=== PATIENT | male | born 1990 | race Caucasian/White ===

== ENCOUNTER 2018-03-28 11:48 | Emergency (ER) | payer OTHER ==
[2018-03-28 11:55] VITALS: BP 121/76
--- NOTE | 2018-03-28 12:08 | EDPHY ---
H & P Stated Complaint: ST Time Seen by Provider: 03/28/18 12:08 - Personal History Current Tetanus/Diphtheria Vaccine: Yes Current Tetanus Diphtheria and Acellular Pertussis (TDAP): Yes - Medical/Surgical History Hx Asthma: No Hx Chronic Respiratory Disease: No Hx Diabetes: No Hx Cardiac Disease: No Hx Renal Disease: No Hx Cirrhosis: No Hx Alcoholism: No Hx HIV/AIDS: No Hx Splenectomy or Spleen Trauma: No Other PMH: strep throat, scarlet fever - Social History Smoking Status: Current every day smoker Constitutional: Initial Vital Signs Temperature (C) 36.7 C 03/28/18 11:53 Heart Rate 80 03/28/18 11:53 Respiratory Rate 16 03/28/18 11:53 Blood Pressure 121/76 H 03/28/18 11:53 O2 Sat (%) 97 03/28/18 11:53 O2 Delivery Mode Room Air Allergies/Adverse Reactions: propranolol Allergy (Verified 03/28/18 11:53) Home Medications: Medication Instructions Recorded NK [No Known Home Meds] 03/28/18 Medical Decision Making ED Course/Re-evaluation: CHIEF COMPLAINT: Sore throat HISTORY OF PRESENT ILLNESS: 27-year-old healthy gentleman with several days with sore throat. He denies any runny nose, sinus congestion, cough. His throat is more more sore he has an intermittent fevers and pain when he swallows. REVIEW OF SYSTEMS: A comprehensive 10 system review of systems is otherwise negative aside from elements mentioned in the history of present illness and medical decision making. PHYSICAL EXAM: HR, BP, O2 Sat, RR. Temp noted General Appearance: Alert, well hydrated, appropriate, and non-toxic appearing. Head: Atraumatic without scalp tenderness or obvious injury Eyes: Pupils equal, round, reactive to light and accommodation, EOMI, no trauma , no injection. Ears: Clear bilaterally, no perforation, normal landmarks Nose: Atraumatic, no rhinorrhea, clear. Throat: Significant erythema with exudates bilaterally on the tonsillar beds. No abscess Neck: Supple, 2+ carotid upstroke, nontender, no lymphadenopathy. Respiratory: No retractions, no distress, no wheezes, and no accessory muscle use. Lungs are clear to auscultation bilaterally. Cardiovascular: Regular rate and rhythm, no murmurs, rubs, or gallops. Bilateral carotid, radial, dorsalis pedis, and posterior tibial pulses intact. Good capillary refill all extremities. Gastrointestinal: Abdomen is soft, nontender, non-distended, no masses, no rebound, no guarding, no peritoneal signs. Musculoskeletal: Normal active ROM of all extremities, atraumatic. Neurological: Alert, appropriate, and interactive. The patient has normal DTRs and non-focal cranial nerves, motor, sensory, and cerebellar exam. Skin: No rashes, good turgor, no nodules on palpation. Past medical history: Patient denies Past surgical history: Noncontributory Family history: Noncontributory Social history: Single, employed, does not abuse tobacco drugs or alcohol DIFFERENTIAL DIAGNOSIS: The differential diagnosis for the patient's fever included but was not limited to pneumonia, urinary tract infection, viral syndrome, meningitis, and sepsis. MEDICAL DECISION MAKING: This patient has an obvious bacterial throat infection. I am treating him with cephalexin and 1 dose of steroids. He will follow up with primary care doctor. There is no abscess or secondary complications of the bacterial throat infection. - Data Points Laboratory Results: 03/28/18 11:51 Group A Strep Screen Pending Departure - Departure Disposition: Home, Routine, Self-Care Clinical Impression: Pharyngitis Qualifiers: Pharyngitis/tonsillitis etiology: unspecified etiology Qualified Code(s): J02.9 - Acute pharyngitis, unspecified Condition: Good Instructions: Pharyngitis (ED), Strep Throat (ED) Additional Instructions: Return if worse. Follow up with her primary doctor if needed Referrals: NONE *PRIMARY CARE P,. [Primary Care Provider] - As per Instructions
[2018-03-28] MEDS ORDERED: DEXAMETHASONE 10 MG/ML VIAL PO ONE (12:12)
== END 2018-03-28 12:35 | disposition home or self-care (01) ==
DX: J02.9 Acute pharyngitis, unspecified (principal); F17.200 Nicotine dependence, unspecified, uncomplicated
CPT/HCPCS: J1100